=== PATIENT | female | born 1950 | race Hispanic/Latino ===

== ENCOUNTER 2018-01-01 12:29 | Emergency (ER) | payer BC, OTHER ==
[2018-01-01] MEDS ORDERED: LIDOCAINE HCL 1% 20 ML VIAL ONE (12:43)
== END 2018-01-01 14:05 | disposition home or self-care (01) ==
LOC: EDH 12:29
DX: S63.287A Dislocation of proximal interphalangeal joint of left little finger, initial encounter (principal); I10 Essential (primary) hypertension; Z85.850 Personal history of malignant neoplasm of thyroid; W18.39XA Other fall on same level, initial encounter; Y93.89 Activity, other specified; Y92.89 Other specified places as the place of occurrence of the external cause; Y99.8 Other external cause status
CPT/HCPCS: 26770; 73130; 73140

== ENCOUNTER → 2018-01-06 | Outpatient (CLI) | payer OTHER | END | disposition home or self-care (01) | LOC: RAH 08:05 | PROVIDERS: ATTEND Internal Medicine Cardiovascular Disease | DX: I87.2 Venous insufficiency (chronic) (peripheral) (principal) | CPT/HCPCS: 78452; 93017; 93970; A9500 ×2 ==

== ENCOUNTER 2018-09-10 03:19 | Emergency (ER) | payer MEDICARE, OTHER ==
[2018-09-10] MEDS ORDERED: KETOROLAC TROMETHAMINE 30MG/ML ONE (03:53)
== END 2018-09-10 05:50 | disposition home or self-care (01) ==
LOC: EDH 03:19
DX: S20.211A Contusion of right front wall of thorax, initial encounter (principal); I10 Essential (primary) hypertension; Z85.850 Personal history of malignant neoplasm of thyroid; Z90.710 Acquired absence of both cervix and uterus; W18.39XA Other fall on same level, initial encounter; Y93.01 Activity, walking, marching and hiking; Y92.89 Other specified places as the place of occurrence of the external cause; Y99.8 Other external cause status
CPT/HCPCS: 71101; 96372; 99283; J1885

== ENCOUNTER 2018-12-18 12:51 | Emergency (ER) | payer OTHER ==
[2018-12-18] MEDS ORDERED: TETANUS/DIPHTHERIA TOXOID [ADULT] 0.5 ML VIAL IM ONE (13:16)
== END 2018-12-18 13:59 | disposition home or self-care (01) ==
LOC: EDH 12:51
DX: S61.213A Laceration without foreign body of left middle finger without damage to nail, initial encounter (principal); I10 Essential (primary) hypertension; Z90.710 Acquired absence of both cervix and uterus; Z98.890 Other specified postprocedural states; Z87.891 Personal history of nicotine dependence; Z85.850 Personal history of malignant neoplasm of thyroid; W45.8XXA Other foreign body or object entering through skin, initial encounter; Y93.89 Activity, other specified; Y92.89 Other specified places as the place of occurrence of the external cause; Y99.8 Other external cause status
CPT/HCPCS: 90471; 90714

== ENCOUNTER → 2019-04-13 | Outpatient (CLI) | payer OTHER | END | disposition home or self-care (01) | LOC: SHCH 16:04 | PROVIDERS: ATTEND Internal Medicine Cardiovascular Disease | DX: I11.9 Hypertensive heart disease without heart failure (principal); I35.1 Nonrheumatic aortic (valve) insufficiency | CPT/HCPCS: 93306 ==

== ENCOUNTER → 2019-06-28 | Outpatient (CLI) | payer OTHER | END | disposition home or self-care (01) | LOC: CANPRECLI → SHCH 15:18 | PROVIDERS: ATTEND Internal Medicine Cardiovascular Disease | DX: I73.9 Peripheral vascular disease, unspecified (principal) | CPT/HCPCS: 93925 ==

== ENCOUNTER → 2020-06-01 | Outpatient (CLI) | payer BC | END | disposition home or self-care (01) | LOC: SHCH 14:05 | PROVIDERS: ATTEND Internal Medicine Cardiovascular Disease | DX: I87.2 Venous insufficiency (chronic) (peripheral) (principal) | CPT/HCPCS: 93970 ==

== ENCOUNTER → 2020-06-06 | Outpatient (CLI) | payer BC, MEDICARE ==
[~2020-06-06] MED LIST: REGADENOSON 0.4 MG/5 ML PF SYG IVP SCH
== END | disposition home or self-care (01) ==
LOC: SHCH 07:47
PROVIDERS: ATTEND Internal Medicine Cardiovascular Disease
DX: I20.9 Angina pectoris, unspecified (principal); R07.9 Chest pain, unspecified
CPT/HCPCS: 78452; 93017; 96374; A9500 ×2; J2785

== ENCOUNTER 2021-09-07 08:23 | Day surgery (SDC) | payer BC, MEDICARE ==
[2021-09-05 17:06] LABS: BASOPHILS % (AUTO) 0.9 % (0.0-5.0); EOSINOPHILS % (AUTO) 2.5 % (0.0-8.0); HEMATOCRIT 34.1 % (36-48); LYMPHOCYTES % (AUTO) 49.9 % (21.0-51.0); MEAN CORPUSCULAR VOLUME 93.9 fL (79-99); MONOCYTES % (AUTO) 10.5 % (3.0-13.0); PLATELET COUNT (AUTO) 289 K/uL (130-400); RED BLOOD CELL COUNT(AUTO) 3.63 MIL/uL (4.00-5.50); RED CELL DISTRIBUTION WIDTH 12.8 % (11.0-15.5); WHITE BLOOD COUNT (AUTO) 5.5 K/uL (4.8-10.8)
[2021-09-05 17:16] LABS: INR 1.01 (0.85-1.15)
[2021-09-05 17:18] LABS: CREATININE 0.6 mg/dL (0.5-1.5); PARTIAL THROMBOPLASTIN TIME 26.9 SEC (26.3-35.5); POTASSIUM 4.4 mmol/L (3.5-5.1)
[2021-09-06 12:18] VITALS: BP 118/60
[~2021-09-07] VITALS: Ht 154.9 cm; Wt 77.9 kg
[2021-09-07] VITALS (16 sets, daily range): BP systolic 90–119; BP diastolic 46–67
[~2021-09-07 08:23] MED LIST changes: +0.9%NACL 1000ML 1,000 ML IV SCH; +ALBU8.5H8 IH; +AMLO-258 PO; +AZIL80TA PO; +BRIN8DRO OP; +CALCIUM PO; +CARV12.511 PO; +FERROUS SULFATE PO; +FLUT16H NASAL; +FURO20TA4 PO; +LATA7.5D OP; +LEVO175T9 PO; +LORA10TA7 PO; +MULT-1367 PO; +OMEG-184 PO; +OMEP40CA21 PO; -REGADENOSON 0.4 MG/5 ML PF SYG IVP SCH; +VITAMIN B12 PO; +VITAMIN D3 PO
[2021-09-07] MEDS ORDERED: FLUMAZENIL 0.1MG/1ML 5ML VIAL IV ONE (09:32)
[2021-09-07] MEDS ORDERED: NALOXONE HCL 0.4 MG/1 ML ML ONE (09:32)
[2021-09-07] MEDS ORDERED: FENTANYL CITRATE PF 50 MCG/1 ML 2ML VIAL ONE (09:33)
[2021-09-07] MEDS ORDERED: MIDAZOLAM HCL 1 MG/ML 2ML VIAL ONE (09:58)
[2021-09-07] MEDS ORDERED: LIDOCAINE HCL 2% VISCOUS 15 ML UDCUP ONE (10:36)
[2021-10-03] MEDS ORDERED: FERR-82 PO (13:57)
[2021-10-03] MEDS ORDERED: OMEG-148 PO (13:57)
[2021-10-03] MEDS ORDERED: CALC-1125 PO (13:57)
[2021-10-03] MEDS ORDERED: CHOL100046 PO (13:57)
[2021-10-03] MEDS ORDERED: MULT-1250 PO (13:58)
== END 2021-09-07 13:37 | disposition home or self-care (01) ==
LOC: DAH 08:23
PROVIDERS: ATTEND Internal Medicine Cardiovascular Disease
DX: I08.3 Combined rheumatic disorders of mitral, aortic and tricuspid valves (principal); I25.5 Ischemic cardiomyopathy; I10 Essential (primary) hypertension; E78.5 Hyperlipidemia, unspecified; E03.9 Hypothyroidism, unspecified; K21.9 Gastro-esophageal reflux disease without esophagitis; E66.9 Obesity, unspecified; I87.2 Venous insufficiency (chronic) (peripheral); G47.33 Obstructive sleep apnea (adult) (pediatric); Z90.89 Acquired absence of other organs; Z90.710 Acquired absence of both cervix and uterus; Z82.49 Family history of ischemic heart disease and other diseases of the circulatory system; Z83.3 Family history of diabetes mellitus; Z87.891 Personal history of nicotine dependence; Z72.89 Other problems related to lifestyle; Z68.32 Body mass index [BMI] 32.0-32.9, adult; Z79.899 Other long term (current) drug therapy; Z79.01 Long term (current) use of anticoagulants; Z98.890 Other specified postprocedural states
CPT/HCPCS: 36415; 80048; 85025; 85610; 85730; 93005; 93312; 93325; A4215; A4216; A4221; A4222; A4223 ×3; A4606; A4657; A4663; A7002; J2250; J3010; J7030 ×2; 99152; 99157; J2310; J3490

== ENCOUNTER 2021-10-04 05:50 | Day surgery (SDC) | payer BC ==
[2021-10-02 09:56] LABS: EOSINOPHILS % (AUTO) 3.1 % (0.0-8.0); LYMPHOCYTES % (AUTO) 50.6 % (21.0-51.0); MEAN CORPUSCULAR HEMOGLOBIN 31.1 pg (27.0-33.0); MEAN CORPUSCULAR HGB CONC 33.5 g/dL (32.0-36.0); MEAN CORPUSCULAR VOLUME 92.6 fL (79-99); MONOCYTES % (AUTO) 10.1 % (3.0-13.0); NEUTROPHILS % (AUTO) 35.2 % (40.0-77.0); PLATELET COUNT (AUTO) 278 K/uL (130-400); RED BLOOD CELL COUNT(AUTO) 3.67 MIL/uL (4.00-5.50); RED CELL DISTRIBUTION WIDTH 12.8 % (11.0-15.5); WHITE BLOOD COUNT (AUTO) 4.2 K/uL (4.8-10.8)
[2021-10-02 10:04] LABS: CREATININE 0.6 mg/dL (0.5-1.5); INR 1.02 (0.85-1.15); POTASSIUM 3.8 mmol/L (3.5-5.1); PROTHROMBIN TIME 11.1 SEC (9.6-11.6)
[2021-10-02 10:05] LABS: PARTIAL THROMBOPLASTIN TIME 27.5 SEC (26.3-35.5)
[2021-10-02 10:10] LABS: APPEARANCE,URINE CLEAR (CLEAR); BILIRUBIN,URINE NEGATIVE (NEGATIVE); COLOR,URINE YELLOW (YELLOW); GLUCOSE, URINE (UA) NEGATIVE (NEGATIVE); KETONES,URINE NEGATIVE (NEGATIVE); LEUKOCYTE ESTERASE ,URINE NEGATIVE (NEGATIVE); NITRATE,URINE NEGATIVE (NEGATIVE); OCCULT BLOOD,URINE TRACE-INTACT (NEGATIVE); PH,URINE 5.5 (5.0-8.0); PROTEIN,URINE NEGATIVE (NEGATIVE); UROBILINOGEN,URINE 0.2 mg/dL (0.2-1.0)
[2021-10-02 10:16] LABS: BACTERIA,URINE Few /HPF (None Seen); RBC,URINE 0-1 /HPF (0-1); SQUAMOUS EPITHELIAL CELL,UR 0-2 /HPF (0-2); WBC,URINE 0-1 /HPF (0-1)
[2021-10-03 13:01] VITALS: BP 113/53
[2021-10-04] VITALS (10 sets, daily range): BP systolic 106–116; BP diastolic 57–66
[~2021-10-04] VITALS: Ht 154.9 cm; Wt 77.3 kg
[~2021-10-04 05:50] MED LIST changes: -0.9%NACL 1000ML 1,000 ML IV SCH; -ALBU8.5H8 IH; +CALC-1125 PO; -CALCIUM PO; +CHOL100046 PO; +FERR-82 PO; -FERROUS SULFATE PO; -FLUT16H NASAL; -LORA10TA7 PO; +MULT-1250 PO; -MULT-1367 PO; +OMEG-148 PO; -OMEG-184 PO; -OMEP40CA21 PO; -VITAMIN D3 PO
[2021-10-04] MEDS ORDERED: 0.9%NACL 1000ML 1,000 ML IV ONE (07:07)
[2021-10-04] MEDS ORDERED: IOHEXOL-350 50ML VIAL IV ONE (07:35)
[2021-10-04] MEDS ORDERED: LIDOCAINE HCL 400MG/20ML VIAL ONE (07:35)
[2021-10-04] MEDS ORDERED: BIVALIRUDIN 250 MG/VIAL IV ONE (07:35)
[2021-10-04] MEDS ORDERED: NITROGLYCERIN 50MG VIAL ONE (07:35)
[2021-10-04] MEDS ORDERED: IOHEXOL 350 MG/ML 100ML INFUS..BTL IV ONE (07:35)
[2021-10-04] MEDS ORDERED: ONDANSETRON 4MG INJ ONE (07:38)
[2021-10-04] MEDS ORDERED: FENTANYL CITRATE PF 50 MCG/1 ML 2ML VIAL ONE (07:42)
[2021-10-04] MEDS ORDERED: MIDAZOLAM HCL 1 MG/ML 2ML VIAL ONE (07:44)
[2021-10-04] MEDS ORDERED: 0.9%NACL 1000ML 1,000 ML IV SCH (08:30)
[2021-10-04] MEDS ORDERED: DEXTROSE 50%-WATER 50 ML DISP.SYRIN IV PRN (08:30)
[2021-10-04] MEDS ORDERED: GLUCAGON 1MG KIT 1 MG ML IM PRN (08:30)
== END 2021-10-04 13:10 | disposition home or self-care (01) ==
LOC: DAH 05:50
PROVIDERS: ATTEND Internal Medicine Cardiovascular Disease
DX: I34.0 Nonrheumatic mitral (valve) insufficiency (principal); I27.20 Pulmonary hypertension, unspecified; I20.9 Angina pectoris, unspecified; I33.0 Acute and subacute infective endocarditis; I11.0 Hypertensive heart disease with heart failure; I50.33 Acute on chronic diastolic (congestive) heart failure; E78.5 Hyperlipidemia, unspecified; Z90.89 Acquired absence of other organs; Z98.890 Other specified postprocedural states; Z79.899 Other long term (current) drug therapy
CPT/HCPCS: 36415; 80048; 81001; 85025; 85610; 85730; 93460; A4215; A4216; A4221; A4222; A4223 ×3; A4606; A4663; C1760 ×2; C1894 ×3; J1644; J2250; J2405; J3010; J3490; J7030; Q9965; Q9967 ×2; 99156; 99157; J0583

== ENCOUNTER → 2022-12-28 | Outpatient (CLI) | payer MEDICARE, OTHER | END | disposition home or self-care (01) | LOC: SHCH 11:07 | PROVIDERS: ATTEND Internal Medicine Cardiovascular Disease | DX: I35.1 Nonrheumatic aortic (valve) insufficiency (principal); I51.7 Cardiomegaly; Z95.3 Presence of xenogenic heart valve | CPT/HCPCS: 93306 ==

== ENCOUNTER → 2023-09-03 | Outpatient (CLI) | payer MEDICARE | END | disposition home or self-care (01) | LOC: SHCH 14:33 | PROVIDERS: ATTEND Internal Medicine Cardiovascular Disease | DX: I11.9 Hypertensive heart disease without heart failure (principal); I87.1 Compression of vein; I87.2 Venous insufficiency (chronic) (peripheral); E78.5 Hyperlipidemia, unspecified; Z95.2 Presence of prosthetic heart valve | CPT/HCPCS: 93306; 93970 ==